=== PATIENT | male | born 1990 | race Two or more races ===

== ENCOUNTER 2023-07-12 12:04 | Emergency (ER) | payer SELFPAY ==
[~2023-07-12] VITALS: Ht 167.6 cm; Wt 84.5 kg
[2023-07-12 12:55] VITALS: BP 117/70; PULSE 88; RESP 18; TEMP 97.9; O2SAT 97
[2023-07-12] MEDS ORDERED: CEPH500C PO (13:23)
[2023-07-12] MEDS: TETANUS-DIPTH-ACEL PERTUSSIS 0.5ML SYR Tdap IM ONE (13:24)
== END 2023-07-12 13:27 | disposition home or self-care (01) ==
LOC: ER 12:04
DX: S61.012A Laceration without foreign body of left thumb without damage to nail, initial encounter (principal); Z79.899 Other long term (current) drug therapy; W26.0XXA Contact with knife, initial encounter; Y93.89 Activity, other specified; Y92.89 Other specified places as the place of occurrence of the external cause; Y99.8 Other external cause status
CPT/HCPCS: 12002; 90471; 90715